=== PATIENT | female | born 1975 | race Caucasian/White ===

== ENCOUNTER → 2016-10-01 | Outpatient (CLI) | payer OTHER ==
[~2016-10-01] MED LIST: SERT25TA PO; TAMO20TA9 PO
[2016-10-01 14:23] VITALS: BP 114/77; PULSE 75; TEMP 37.2; O2SAT 100
--- NOTE | 2016-10-01 15:20 | Radiation Oncology Follow-Up ---
Radiation Oncology Follow-Up Date of Visit Oct 01, 2016. Reason For Visit Annual follow-up Radiation Completion Date finished 02-28-2015 Diagnosis (1) Breast cancer Status: Resolved Onset Date: 03/02/2014 Permanent Comment: Self detected right breast mass Status post ultrasound-guided core biopsy 03/02/2014 Status post axillary lymph node biopsy 04/03/2014. Clinical stage [id number] Status post neoadjuvant chemotherapy with TCH plus pertuzumab Status post bilateral simple mastectomies with right sentinel lymph node biopsy 09/05/2014 Placement of tissue expanders Staged [id number] Continued Herceptin for 1 year Status post radiation therapy to the Right Chest wall, Supraclav/Axilla completed 02/28/15 received 6,120 cGy Last Edited By: Sugey Sevilla on Mar 03, 2015 16:03 History of Present Illness Ms. Lozano is a 41-year-old female without a family history of breast cancer. She is also undergone BRCA1 and BRCA2 testing and was negative. She self detected a right breast lump in January 2014. She therefore underwent her first ever bilateral mammogram and right breast ultrasound on 02/24/2014 a marker was placed on the palpable lump at the 12 o'clock position of the right breast. At the site of the palpable lump there was irregular mass seen on mammogram with non-circumscribed margins which is ill-defined and difficult to measure. Approximate measurement is 3.0 x 3.9 x 2.5 cm. In addition there are highly suspicious pleomorphic calcifications seen within the mass and throughout the right medial breast involving the right upper inner and right lower inner quadrants. These findings are highly suspicious for multicentric disease. A recommended ultrasound-guided core needle biopsy and stereotactic biopsy of the calcifications distant from the mass was recommended. Targeted ultrasound was performed of the palpable lump in the right breast at the 12 o'clock position. This confirmed a hypoechoic solid mass with spiculated margins measuring approximately 2.0 x 2.1 x 2.3 cm. Targeted ultrasound of the right axilla demonstrates no definitive abnormal right axillary adenopathy. A few axillary nodes are seen but appear to have a normal fatty hilum and ovoid shaped that measure approximately 4 mm and are felt to be equivocal. Overall this was felt to be highly suggestive of malignancy and was given a BI-RADS Category 5. On 03/02/2014 the patient underwent a stereotactic guided biopsy of the right breast with marking device inserted and post digital mammographic imaging and radiographic specimen imaging performed. 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 Estrogen receptors were positive (100%, strong intensity). Progesterone receptors were negative. HER-2/tayler overexpression was positive (score: 3+). The Ki-67 proliferation index was 22% (high). There was suspicion for lymphovascular invasion. 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 Estrogen receptors were positive (95%, strong to intermediate intensity). Progesterone receptors were negative. Cribriform and micropapillary architecture with comedo necrosis was identified. The invasive component was sent for FISH analysis. The tumor cells are positive for HER-2/tayler amplification by FISH that confirms positive result obtained by IHC. Case: [id number]. Patient went on to have further staging with bilateral breast MRIs with without contrast on 03/17/2014. This revealed in the right breast at the 12:00 middle depth and irregular enhancing mass consistent with the biopsy-proven cancer which measures 2.5 x 2.5 cm. Contiguous with the mass there is an extensive non-mass enhancement seen throughout the right upper inner and right lower inner quadrant extending from the posterior breast the nipple with an AP extent measuring approximately 10 cm. These findings are most compatible with multicentric disease. The extent of non-mass enhancement is similar to the extent of suspicious calcifications seen on the mammogram. The left breast was unremarkable. In the axilla on the right there were abnormal right axillary lymph node identified with mild cortical thickening that correlates with the lymph node seen on ultrasound and is indeterminate for metastasis. No other axillary adenopathy were appreciated. This was given a BI-RADS Category 6 with known biopsy-proven malignancy of the right breast. The patient went to [facility] for evaluation and treatment recommendations. As part of her evaluation the biopsy results were reviewed. These confirmed the prior diagnosis. Pathology #[id number]. Patient was seen by Dr. Jose Mir for evaluation and recommendation of adjuvant/neoadjuvant therapy. An ultrasound-guided core biopsy the right axillary lymph node was recommended and performed on 03/24/2014. This revealed metastatic carcinoma. Case: [id number]. A PET CT scan was ordered on 03/25/2014. This identified metabolically active right breast mass with FDG avid enlarged right axillary lymph node consistent with the patient's known diagnosis of breast cancer. No metabolically active distant metastatic disease was identified. Patient was also seen by Dr. Ornelas for discussion of the surgical treatment options. The patient subsequently received neoadjuvant systemic chemotherapy. She tolerated the chemotherapy well and had a excellent response. Post neoadjuvant chemotherapy PET/CT scan was performed on 08/24/2014. This showed a near complete metabolic response with residual soft tissue in the right breast and right axillary node. There was no evidence of distant metabolically active disease appreciated. The patient was seen by Dr. Antonio Angel and wished to proceed with bilateral mastectomies and immediate bilateral reconstruction with tissue expanders. Therefore on 09/05/2014 patient underwent surgery. A right sentinel lymph node was identified and consisted of 2 nodes which revealed sinus histiocytosis but no tumor is seen. The left mastectomy specimen revealed mild chronic mastitis but no tumor seen. The right mastectomy specimen revealed residual 0.5 cm in greatest dimension focal region of ductal atypia with cluster of ducts seen. No residual infiltrative ductal adenocarcinoma was seen. 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 The patient received the first of her fluid infusion of her tissue expanders with 60 mL. She will continue to receive 60 mL every other week until full expansion is obtained. We are asked to see this patient to discuss the potential role of adjuvant radiation following completion of neoadjuvant chemotherapy with a complete pathologic response on mastectomy and sentinel biopsy. She returns after completing expansion to undergo radiation therapy. She completed genetic testing BRCA1 and BRCA2 which were negative. Status post radiation therapy to the Right Chest wall, Supraclav/Axilla completed 02/28/15 received 6,12o cGy. Interim History She has been doing well over this past year. She has noted no changes to her chest wall. She denies any pain or tenderness. She's had no change of her axilla. She is noted no swelling of her arm. She continues regular follow-up with Dr. Mir, Dr. Ornelas, Dr. Angel, and her PCP. She has noticed no changes to the permanent implants. She is on tamoxifen and denies side effects. Allergies Coded Allergies: Adhesives (Verified Adverse Reaction, Mild, RASH BLISTERS, 09/26/14) Home Medications Scheduled Sertraline (Zoloft), 1 TAB PO DAILY Tamoxifen (Nolvadex), 20 MG PO DAILY Review of Systems Gastrointestinal: Symptoms: WNL Oral: Symptoms: No Problems Respiratory: Symptoms: WNL Urinary: Symptoms: WNL Skin: Symptoms: No Problems Breast: Right Upper Arm Measurement: 32.0 Right Mid Arm Measurement: 27.5 Right Wrist Measurement: 16.8 Left Upper Arm Measurement: 31.4 Left Mid Arm Measurement: 26.0 Left Wrist Measurement: 16.7 Arm Dominence: Right Patient Cosmetic Evaluation: Good Staff Cosmetic Evalaluation: Good Physical Exam Vital Signs Date Time Temp Pulse Resp B/P Pulse Ox O2 Delivery O2 Flow Rate FiO2 10/01/16 14:23 37.2 75 16 114/77 100 Pain: Side: Bilateral Pain Location: None Patient Pain Scale: 0 - 10 Initial Pain Intensity: 0.0 Fatigue: None General Appearance: no apparent distress Eyes: normal inspection, EOMI ENT: normal ENT inspection, hearing grossly normal Neck: no adenopathy Respiratory/Chest: lungs clear, no respiratory distress, no accessory muscle use Breast: Breast examination reveals bilateral permanent implants. There are no masses or tenderness and no axillary adenopathy. There is no hyperpigmentation or telangiectasia. There is no skin retractions. There are no skin lesions. Using the [place] score cosmesis she has a excellent outcome. Cardiovascular: regular rate, rhythm, no gallop, no murmur Extremities: no pedal edema Neurologic/Psychiatric: no motor/sensory deficits, alert, normal mood/affect Skin: warm/dry Lymphatic: no adenopathy Assessment & Plan Plan: Continue regular follow-up with Dr. Mir, Dr. Bell, Dr. Ornelas, and Dr. Angle. She continues on tamoxifen. We asked her to return to our office in 1 year. She may call if she has any questions or concerns in the interim. Total Time In Follow-Up I spent 20 minutes speaking to the patient performing examination. I spent 15 minutes reviewing information and completing this note. Copy To Antonio Angel M.D.; Edwina Ornelas MD; Екатерина Mireles DTaylor; Jose Mir M.D. Problem Qualifiers (1) Breast cancer: Patient sex: female Laterality: right
== END | disposition home or self-care (01) ==
LOC: C.ONC 14:11
PROVIDERS: ATTEND Physician Assistant Medical
DX: Z08 Encounter for follow-up examination after completed treatment for malignant neoplasm (principal); Z92.3 Personal history of irradiation; Z85.3 Personal history of malignant neoplasm of breast

== ENCOUNTER → 2016-11-14 | Outpatient (CLI) | payer OTHER ==
--- NOTE | 2016-11-14 12:55 | MAMMOGRAPHY REPORT ---
ULTRASOUND OF RIGHT BREAST: 11/14/2016 CLINICAL HISTORY: 41-year-old woman with a personal history of right breast cancer status post mastec tomies and reconstruction, presents with a new palpable lump in the lower inner quadrant of the recon structed right breast. COMPARISON: Comparison is made to exams dated: 02/24/2014 mammogram and 03/02/2014 mammogram. FINDINGS: Targeted real-time high-resolution ultrasound was performed in the area of palpable lump po inted out by the patient (approximate 4:00 right breast, 9 cm from the nipple near the mid sternum). On ultrasound there is an irregular isoechoic to slightly hypoechoic solid-appearing mass measuring 5.9 x 4.8 x 5.8 mm. This is best visualized in the anti-radial plane. This is indeterminate and def initive characterization with tissue sampling is recommended. IMPRESSION: ACR BI-RADS CATEGORY 4B: INTERMEDIATE SUSPICION FOR MALIGNANCY - FOLLOW-UP RECOMMENDED 1. Ultrasound guided core needle biopsy is recommended for a new palpable solid appearing 6 mm mass in the approximate 4:00 axis of the reconstructed right breast. These results and recommendations were discussed with the patient at the time of the exam. She tenta tively scheduled the biopsy prior to leaving our department. Rashmi Nation M.D. ay/:11/14/2016 12:47:35 Motion Study Technician: Diane BENEDICT)(Prabha), [facility] letter sent: Abnormal 4/5 BI-RADS Code: ACR BI-RADS Category 4B: Intermediate Suspicion For Malignancy
--- NOTE | 2016-11-14 14:11 | Discharge Instructions ---
Discharge Instructions Procedure Procedure Date: Nov 14, 2016. Reason for visit: Rt Mass/Bilateral Implants, Breast Ca. Discharge Discharge Date: Nov 14, 2016. Discharge Diagnosis: post right breast ultrasound guided core biopsy Instructions Activity Recommendations: Additional Limitations (see below) Return to School/Work: no limitations Recommended Home Diet: No Limitations Provider Instructions: ACTIVITY RECOMMENDATIONS: * No lifting, pushing, pulling or exercising the affected side for three days. RETURN TO SCHOOL/WORK: * You may return to work/school after the procedure, but do not perform any strenuous activities for 24 to 48 hours. MEDICATIONS: * Tylenol (two 325 mg) every four to six hours if needed for mild pain (if not allergic to Tylenol). DIET: * Resume previous diet. SPECIAL CARE INSTRUCTIONS: * Keep biopsy site dry for 24 hours. May shower after 24 hours, but do not soak (bathe) incision. * May remove Tegaderm (plastic patch) tomorrow AFTER showering. * Leave the steri-strips on for one week. Allow the steri-strips to fall off by themselves. If not off after one week, you may remove them. You may place a Bandaid crosswise over the strips, if desired. * Apply ice 10 minutes on and 10 minutes off as needed. * Wear a bra at bedtime to sleep more comfortably for 2-3 days. * Your referring physician should have the results after approximately 5 to 7 business days. * Call for unusual bleeding, fever, drainage, etc or if you have any questions call [phone] during normal business hours or after hours call Dr Nation, . FOLLOW UP VISIT: Follow-up with Referring Physician as scheduled. Allergies Coded Allergies: Adhesives (Verified Adverse Reaction, Mild, RASH BLISTERS, 09/26/14) Kathrin Juarez Recommendations: Call your doctor if: * Temperature above 101 degrees * Pain not relieved by pain medicine ordered * There is increased drainage or redness from any incision * You have any unanswered questions or concerns. Your Doctors Instructions noted above were prepared by provider Rashmi Nation. Patient Signature Section: Patient Instructions Signature Page Nadai Smith Patient (or Guardian) Signature/Date: I have read and understand the instructions given to me by my caregivers. Caregiver/RN/Doctor Signature/Date: The above-named patient and/or guardian has received patient instructions on this date. + Original Patient Signature Page (only) stays with chart. Please make copy for patient.
--- NOTE | 2016-11-14 16:18 | MAMMOGRAPHY REPORT ---
ULTRASOUND GUIDED BIOPSY RIGHT BREAST: 11/14/2016 CLINICAL HISTORY: Solid palpable irregular hypoechoic mass in the 4:00 far medial aspect of the recon structed right breast. Patient presented for ultrasound-guided core biopsy. COMPARISON: Comparison is made to exams dated: 11/14/2016 ultrasound - [facility], mammogram, and 02/24/2014 mammogram. PATIENT CONSENT: The procedure, risks and benefits were discussed with the patient and informed writt en consent was obtained. Specific risks to this procedure include: bleeding, infection, puncture of a djacent structure including damage to the implant, nontarget biopsy, sampling error, metal allergy, p ain and medication reaction. PROCEDURE DESCRIPTION: A time out was performed and the right breast was agreed as the site of biopsy . The skin was prepped and draped in the usual sterile fashion. The solid mass in the 4:[address] was chosen as the target for biopsy. Subcutaneous and intraparenchymal 1% buffered lidocaine was a dministered as local anesthesia. A skin incision was made. Through the incision, 4 samples were take n with a 14 gauge Achieve biopsy device. A metallic marker was placed at the biopsy site. Hemostasis was achieved after manual compression. The patient tolerated the procedure well and there was no imme diate complication. The samples were sent expedited to the pathology department in an appropriately labeled container. IMPRESSION: ULTRASOUND GUIDED BIOPSY Status post ultrasound-guided core biopsy of an indeterminate solid palpable mass in the 4:00 reconst ructed right breast, with biopsy marker placed at the site. The patient will receive notification of the biopsy results from her referring physician. Rashmi Nation M.D. ay/:11/14/2016 15:27:49 Healthcare Network Consultant: Radha BENEDICT)(Prabha), [facility]
== END | disposition home or self-care (01) ==
LOC: C.MAMM 08:36
PROVIDERS: ATTEND Physician Assistant
DX: N63 Unspecified lump in breast (principal)

== ENCOUNTER → 2017-04-11 | Outpatient (CLI) | payer OTHER | END | disposition home or self-care (01) | LOC: C.PAPS 11:24 | PROVIDERS: ATTEND Obstetrics & Gynecology | DX: Z01.411 Encounter for gynecological examination (general) (routine) with abnormal findings (principal); R87.616 Satisfactory cervical smear but lacking transformation zone; Z87.42 Personal history of other diseases of the female genital tract; Z97.5 Presence of (intrauterine) contraceptive device ==

== ENCOUNTER → 2017-05-23 | Outpatient (CLI) | payer OTHER ==
[~2017-05-23] MED LIST changes: +GADAVIST IV PRN
--- NOTE | 2017-05-26 07:49 | MAMMOGRAPHY REPORT ---
BREAST MRI OF BOTH BREASTS : 05/23/2017 CLINICAL HISTORY: History of right breast cancer status post bilateral mastectomy and silicone recons truction. The patient underwent biopsy of a palpable mass in the right medial breast November 2016, whic h yielded benign pathology including fat necrosis. COMPARISON: Comparison is made to exams dated: 11/14/2016 ultrasound biopsy, 11/14/2016 ultrasound - [facility], 03/02/2014 mammogram, and 02/24/2014 mammogram. Technique: The patient was placed prone in a dedicated breast imaging coil. Precontrast axial T1-eh ghted, axial and sagittal T2-weighted fat saturation, axial and sagittal STIR, and axial T1-weighted fat saturation images were obtained. After the administration of 8 mL of Gadavist IV contrast, seque ntial T1-weighted fat saturation images were obtained. Subtraction images were obtained of the dynam ic contrast enhanced sequences, and 3-D reformations were performed. The [employer] software was used for kinetic analysis. Findings: There is no significant background parenchymal enhancement. There are expected post surgical changes from bilateral mastectomies with silicone implant reconstruction. Bilateral subpectoral silicone im plants are intact without evidence of intracapsular or extracapsular rupture. There is a tiny 3 mm c ircumscribed enhancing focus in the inferior aspect of the left reconstructed breast anteriorly at ap proximately 6:00 along the margin of the implant, which demonstrates corresponding T2 hyperintensity and a mixed kinetics pattern (series 801 image 82). The focus is probably benign and follow-up MRI i s recommended to ensure stability in 6 months. The remainder of both reconstructed breasts are negat marilu, without suspicious enhancing masses or areas of abnormal non-mass enhancement. There is no evidence of axillary adenopathy. The chest wall structures are negative. Extramammary s oft tissues are unremarkable. IMPRESSION: ACR-BI-RADS CATEGORY 3: PROBABLY BENIGN 1. Status post bilateral mastectomy with implant reconstruction. No evidence of implant rupture. 2. Tiny 3 mm enhancing focus in the left reconstructed breast at approximately 6:00. The focus is pr obably benign and follow-up bilateral breast MRI is recommended to ensure stability in 6 months. 3. No MRI evidence of malignancy in the right reconstructed breast. Julita Medrano M.D. /:05/24/2017 11:43:55 Counseling Specialist: field crop i farmworker, [facility] letter sent: Follow Up Recommended 3 BI-RADS Code: ACR-BI-RADS Category 3: Probably Benign
== END | disposition home or self-care (01) ==
LOC: C.MRI 09:16
PROVIDERS: ATTEND Physician Assistant
DX: R92.8 Other abnormal and inconclusive findings on diagnostic imaging of breast (principal); Z90.13 Acquired absence of bilateral breasts and nipples; Z98.82 Breast implant status

== ENCOUNTER → 2017-09-30 | Outpatient (CLI) | payer OTHER ==
[2016-10-01 14:23] VITALS: BP 114/77; PULSE 75
[~2017-09-30] MED LIST changes: -GADAVIST IV PRN
[2017-09-30 13:18] VITALS: BP 125/80; PULSE 76; TEMP 37.6; O2SAT 98
--- NOTE | 2017-09-30 14:10 | Radiation Oncology Follow-Up ---
Radiation Oncology Follow-Up Date of Visit Sep 30, 2017. Reason For Visit Annual follow-up Radiation Completion Date 02/28/15 Diagnosis (1) Breast cancer Status: Resolved Onset Date: 03/02/2014 Location: Right breast Stage: ll (B) Permanent Comment: Self detected right breast mass Status post ultrasound-guided core biopsy 03/02/2014 Status post axillary lymph node biopsy 04/03/2014. Clinical stage [id number] Status post neoadjuvant chemotherapy with TCH plus pertuzumab Status post bilateral simple mastectomies with right sentinel lymph node biopsy 09/05/2014 Placement of tissue expanders Staged [id number] Continued Herceptin for 1 year Status post radiation therapy to the Right Chest wall, Supraclav/Axilla completed 02/28/15 received 6,120 cGy Last Edited By: Sugey Sevilla on Mar 03, 2015 16:03 History of Present Illness Ms. Lozano is without a family history of breast cancer. She is also undergone BRCA1 and BRCA2 testing and was negative. She self detected a right breast lump in January 2014. She therefore underwent her first ever bilateral mammogram and right breast ultrasound on 02/24/2014 a marker was placed on the palpable lump at the 12 o'clock position of the right breast. At the site of the palpable lump there was irregular mass seen on mammogram with non-circumscribed margins which is ill-defined and difficult to measure. Approximate measurement is 3.0 x 3.9 x 2.5 cm. In addition there are highly suspicious pleomorphic calcifications seen within the mass and throughout the right medial breast involving the right upper inner and right lower inner quadrants. These findings are highly suspicious for multicentric disease. A recommended ultrasound-guided core needle biopsy and stereotactic biopsy of the calcifications distant from the mass was recommended. Targeted ultrasound was performed of the palpable lump in the right breast at the 12 o'clock position. This confirmed a hypoechoic solid mass with spiculated margins measuring approximately 2.0 x 2.1 x 2.3 cm. Targeted ultrasound of the right axilla demonstrates no definitive abnormal right axillary adenopathy. A few axillary nodes are seen but appear to have a normal fatty hilum and ovoid shaped that measure approximately 4 mm and are felt to be equivocal. Overall this was felt to be highly suggestive of malignancy and was given a BI-RADS Category 5. On 03/02/2014 the patient underwent a stereotactic guided biopsy of the right breast with marking device inserted and post digital mammographic imaging and radiographic specimen imaging performed. 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 Estrogen receptors were positive (100%, strong intensity). Progesterone receptors were negative. HER-2/tayler overexpression was positive (score: 3+). The Ki-67 proliferation index was 22% (high). There was suspicion for lymphovascular invasion. 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 Estrogen receptors were positive (95%, strong to intermediate intensity). Progesterone receptors were negative. Cribriform and micropapillary architecture with comedo necrosis was identified. The invasive component was sent for FISH analysis. The tumor cells are positive for HER-2/tayler amplification by FISH that confirms positive result obtained by IHC. Case: [id number]. Patient went on to have further staging with bilateral breast MRIs with without contrast on 03/17/2014. This revealed in the right breast at the 12:00 middle depth and irregular enhancing mass consistent with the biopsy-proven cancer which measures 2.5 x 2.5 cm. Contiguous with the mass there is an extensive non-mass enhancement seen throughout the right upper inner and right lower inner quadrant extending from the posterior breast the nipple with an AP extent measuring approximately 10 cm. These findings are most compatible with multicentric disease. The extent of non-mass enhancement is similar to the extent of suspicious calcifications seen on the mammogram. The left breast was unremarkable. In the axilla on the right there were abnormal right axillary lymph node identified with mild cortical thickening that correlates with the lymph node seen on ultrasound and is indeterminate for metastasis. No other axillary adenopathy were appreciated. This was given a BI-RADS Category 6 with known biopsy-proven malignancy of the right breast. The patient went to [facility] for evaluation and treatment recommendations. As part of her evaluation the biopsy results were reviewed. These confirmed the prior diagnosis. Pathology #[id number]. Patient was seen by Dr. Jose Mir for evaluation and recommendation of adjuvant/neoadjuvant therapy. An ultrasound-guided core biopsy the right axillary lymph node was recommended and performed on 03/24/2014. This revealed metastatic carcinoma. Case: [id number]. A PET CT scan was ordered on 03/25/2014. This identified metabolically active right breast mass with FDG avid enlarged right axillary lymph node consistent with the patient's known diagnosis of breast cancer. No metabolically active distant metastatic disease was identified. Patient was also seen by Dr. Ornelas for discussion of the surgical treatment options. The patient subsequently received neoadjuvant systemic chemotherapy. She tolerated the chemotherapy well and had a excellent response. Post neoadjuvant chemotherapy PET/CT scan was performed on 08/24/2014. This showed a near complete metabolic response with residual soft tissue in the right breast and right axillary node. There was no evidence of distant metabolically active disease appreciated. The patient was seen by Dr. Antonio Angel and wished to proceed with bilateral mastectomies and immediate bilateral reconstruction with tissue expanders. Therefore on 09/05/2014 patient underwent surgery. A right sentinel lymph node was identified and consisted of 2 nodes which revealed sinus histiocytosis but no tumor is seen. The left mastectomy specimen revealed mild chronic mastitis but no tumor seen. The right mastectomy specimen revealed residual 0.5 cm in greatest dimension focal region of ductal atypia with cluster of ducts seen. No residual infiltrative ductal adenocarcinoma was seen. 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 The patient received the first of her fluid infusion of her tissue expanders with 60 mL. She will continue to receive 60 mL every other week until full expansion is obtained. We are asked to see this patient to discuss the potential role of adjuvant radiation following completion of neoadjuvant chemotherapy with a complete pathologic response on mastectomy and sentinel biopsy. She returns after completing expansion to undergo radiation therapy. She completed genetic testing BRCA1 and BRCA2 which were negative. Status post radiation therapy to the Right Chest wall, Supraclav/Axilla completed 02/28/15 received 6,12o cGy. Interim History She has been doing well over this past year. She denies any changes to the implanted breast. She has noted no masses or tenderness and no change of the axilla. In November of last year she was found to have a palpable mass in the lower inner quadrant of the right breast. An ultrasound guided biopsy was performed on area that was felt to be a 6 mm solid mass. This showed scar tissue and fat necrosis. There was no evidence of malignancy. Specimen [id number]. She continues on tamoxifen and denies side effects. At her last visit in medical oncology she was noted to have some arm edema. Venous Doppler was performed and was negative. She was referred to the lymphedema clinic and had 2 sessions of instructions and treatment. Allergies Coded Allergies: Adhesives (Verified Adverse Reaction, Mild, RASH BLISTERS, 09/26/14) Home Medications Scheduled Sertraline (Zoloft), 1 TAB PO DAILY Tamoxifen (Nolvadex), 20 MG PO DAILY Review of Systems Gastrointestinal: Symptoms: WNL Oral: Symptoms: No Problems Respiratory: Symptoms: WNL Urinary: Symptoms: WNL Skin: Symptoms: No Problems Breast: Right Upper Arm Measurement: 32.5 Right Mid Arm Measurement: 27.8 Right Wrist Measurement: 16.8 Left Upper Arm Measurement: 31.5 Left Mid Arm Measurement: 27.8 Left Wrist Measurement: 16.8 Arm Dominence: Right Patient Cosmetic Evaluation: Good Staff Cosmetic Evalaluation: Good Physical Exam Vital Signs Date Time Temp Pulse Resp B/P (MAP) Pulse Ox O2 Delivery O2 Flow Rate FiO2 09/30/17 13:18 37.6 76 16 125/80 98 Fatigue: None General Appearance: no apparent distress Eyes: normal inspection, EOMI ENT: normal ENT inspection Neck: no adenopathy, thyroid normal Respiratory/Chest: lungs clear, no respiratory distress, no accessory muscle use Breast: Bilateral implanted breasts. There are no masses or tenderness and no axillary adenopathy. Nipples are absent. The breasts are symmetric. There is no telangiectasia. Using the [place] score cosmesis she has an excellent outcome. Cardiovascular: regular rate, rhythm, no gallop, no murmur Extremities: no pedal edema Neurologic/Psychiatric: no motor/sensory deficits, alert, normal mood/affect Skin: warm/dry Pain Management Patient Reports Pain: No Side: Bilateral Pain Location: None Patient Preferred Pain Scale: 0 - 10 Initial Pain Intensity: 0.0 Pain Management Plan She denies pain therefore requires no pain management. Laboratory Laboratory Results: were reviewed, and pertinent findings noted in HPI Pathology Pathology Results: were reviewed, and pertinent findings noted in HPI Imaging Imaging Studies: were reviewed, and pertinent findings noted below Imaging Comments Patient: PERRY OLZANO [facility] Rec: [id number] Address[address]: [address] Address2: Acct ID: [id number] Date: 1975 Sex: F Ref Phy: Vonnie Márquez PA-C Att Phy: Vonnie Márquez PA-C Rola Phy: Екатерина Mireles D.O. Inter Phy: Julita Medrano MD [facility] Zip: [place] [address] SC: C.MRI Report #: [id number] Manager Ecommerce: ROLANDA Diagnosis: HX BREAST R CA/BILATERAL MASTECOMIES Service Date: 05/23/17 MNE: [id number] Ordering Dr: Vonnie Márquez PA-C CC: Vonnie Márquez PA-C CONF: DICTATED BY: Julita Medrano MD MAMMOGRAPHY REPORT BREAST MRI OF BOTH BREASTS : 05/23/2017 CLINICAL HISTORY: History of right breast cancer status post bilateral mastectomy and silicone reconstruction. The patient underwent biopsy of a palpable mass in the right medial breast November 2016, which yielded benign pathology including fat necrosis. COMPARISON: Comparison is made to exams dated: 11/14/2016 ultrasound biopsy, 2016 ultrasound - [facility], 03/02/2014 mammogram, and 2013 mammogram. Technique: The patient was placed prone in a dedicated breast imaging coil. Precontrast axial T1-weighted, axial and sagittal T2-weighted fat saturation, axial and sagittal STIR, and axial T1-weighted fat saturation images were obtained. After the administration of 8 mL of Gadavist IV contrast, sequential T1-weighted fat saturation images were obtained. Subtraction images were obtained of the dynamic contrast enhanced sequences, and 3-D reformations were performed. The [employer] software was used for kinetic analysis. Findings: There is no significant background parenchymal enhancement. There are expected post surgical changes from bilateral mastectomies with silicone implant reconstruction. Bilateral subpectoral silicone implants are intact without evidence of intracapsular or extracapsular rupture. There is a tiny 3 mm circumscribed enhancing focus in the inferior aspect of the left reconstructed breast anteriorly at approximately 6:00 along the margin of the implant, which demonstrates corresponding T2 hyperintensity and a mixed kinetics pattern ( series 801 image 82). The focus is probably benign and follow-up MRI is recommended to ensure stability in 6 months. The remainder of both reconstructed breasts are negative, without suspicious enhancing masses or areas of abnormal non-mass enhancement. There is no evidence of axillary adenopathy. The chest wall structures are negative. Extramammary soft tissues are unremarkable. IMPRESSION: ACR-BI-RADS CATEGORY 3: PROBABLY BENIGN 1. Status post bilateral mastectomy with implant reconstruction. No evidence of implant rupture. 2. Tiny 3 mm enhancing focus in the left reconstructed breast at approximately 6:00. The focus is probably benign and follow-up bilateral breast MRI is recommended to ensure stability in 6 months. 3. No MRI evidence of malignancy in the right reconstructed breast. Julita Medrano M.D. /:05/24/2017 11:43:55 [employer]: art museum docent, [facility] letter sent: Follow Up Recommended 3 BI-RADS Code: ACR-BI-RADS Category 3: Probably Benign Dictated by: Julita Medrano MD Signed by: Julita Medrano MD Assessment & Plan Plan: Continue regular follow-up scheduling of MRIs. She is scheduled for an MRI in November. Continue follow-up with medical oncology and her primary care provider. She continues on tamoxifen. She previously had lymphedema therapy. She will call if she notes any change of the arm with swelling or tightness. We asked her to return to our office in 1 year. She may call if she has any questions or concerns in the interim. Total Time In Follow-Up I spent 20 minutes speaking to the patient in performing examination. I spent 15 minutes reviewing information and completing this note. Copy To Antonio Angel M.D.; Edwina Ornelas MD; Tank Leslie MD; Екатерина Mireles D.O.
== END | disposition home or self-care (01) ==
LOC: C.ONC 13:10
PROVIDERS: ATTEND Physician Assistant Medical
DX: Z08 Encounter for follow-up examination after completed treatment for malignant neoplasm (principal); Z92.3 Personal history of irradiation; Z85.3 Personal history of malignant neoplasm of breast